=== PATIENT | male | born 1970 ===

== ENCOUNTER 2016-11-13 20:46 | Emergency (ER) | payer SELFPAY ==
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
[2016-11-13] MEDS ORDERED: ceFAZolin 2 GM/DEXTROSE 100 ML IV ONE (21:54)
[2016-11-13] MEDS ORDERED: OXYCODONE/APAP 5/325MG PREPACK#4 BTL TAKEHOME ONE (22:24)
[2016-11-13] MEDS ORDERED: CEPHALEXIN 500MG PREPACK#4 BTL TAKEHOME ONE (22:24)
[2016-11-13 23:04] VITALS: BP 133/84; PULSE 74; RESP 20; TEMP 98.2; O2SAT 95
== END 2016-11-13 23:03 | disposition home or self-care (01) ==
LOC: EDBD 20:46
PROC: 0RSXX5Z Reposition Left Finger Phalangeal Joint with External Fixation Device, External Approach (ICD-10-PCS; principal; 2016-11-13)
DX: S63.283A Dislocation of proximal interphalangeal joint of left middle finger, initial encounter (principal); V18.0XXA Pedal cycle driver injured in noncollision transport accident in nontraffic accident, initial encounter; Y99.8 Other external cause status; Y93.55 Activity, bike riding
CPT/HCPCS: 96365; J0690; L3925